=== PATIENT | male | born 1975 | race Caucasian/White ===

== ENCOUNTER 2019-12-16 07:33 | Emergency (ER) | payer OTHER, SELFPAY ==
--- NOTE | ~2019-12-16 | XR_ITS ---
XR shoulder LT min 2V DATE: 12/16/2019 08:08 INDICATION: Injury. Anterior superior and posterior pain TECHNIQUE: 5 views COMPARISON: None FINDINGS: There is no fracture, dislocation, periosteal reaction or bone destruction or abnormal soft tissue calcification. IMPRESSION: Negative Reviewed, dictated and finalized at location A. IMPRESSION: Negative
[2019-12-16 07:37] VITALS: BP 159/108; PULSE 78; RESP 14; TEMP 36.3; O2SAT 100
--- NOTE | 2019-12-16 07:49 | ED.UPPEXIN ---
HPI - Extremity Injury (Upper) General Chief Complaint: Extremity Injury, Upper Stated Complaint: Left shoulder injury Time Seen by Provider: 12/16/19 07:44 Source: patient Mode of arrival: ambulatory Limitations: no limitations History of Present Illness HPI narrative: 44 yo male left hand dominant who presents with c/o left shoulder pain. 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 He states he was pulling debris off a roof when he noticed pulling pain to left posterior shoulder. He states his pain radiates down to his elbow and he has some mild tingling to his finger. His pain is worse with movement. He denies neck injury. He has not taken anything for pain. Related Data Home Medications Medication Instructions Recorded Confirmed No Home Medications 12/16/19 12/16/19 Allergies Allergy/AdvReac Type Severity Reaction Status Date / Time No Known Allergies Allergy Verified 12/16/19 07:40 Review of Systems Constitutional: Constitutional: Denies chills and Denies fever(s) Neurologic: Denies focal weakness and Reports weakness PMFSH Past Medical History Medical History (Updated 12/16/19 @ 09:30 by Chely Harding MD) No active medical problems Surgical History Surgical History (Updated 12/16/19 @ 07:53 by Chely Harding MD) S/P left knee arthroscopy Social History Social History (Updated 12/16/19 @ 07:53 by Chely Harding MD) Occupation/Education: occupation 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 Gender identity (if verbalized by the patient): Male Exam Const: General: no acute distress and alert Orientation/consciousness: patient oriented x3 Resp: Effort & Inspection: normal respiratory effort Cardio: Other: bilateral strong radial pulse Skin: General skin exam: normal color Rashes: no rashes Neuro: General: patient oriented x3 and moves all extremities Extrem: Left upper extremity: full ROM and shoulder/upper arm tenderness of the A-C joint (left) Course Vital Signs Vital signs: Vital Signs Temperature 97.4 F L 12/16/19 07:37 Pulse Rate 78 12/16/19 07:37 Respiratory Rate 14 12/16/19 07:37 Blood Pressure 159/108 H 12/16/19 07:37 Pulse Oximetry 100 12/16/19 07:37 Temperature 97.4 F L 12/16/19 07:37 Pulse Rate 71 12/16/19 10:00 Respiratory Rate 16 12/16/19 10:00 Blood Pressure 146/103 H 12/16/19 10:00 Pulse Oximetry 97 12/16/19 10:00 MDM - Extremity Injury (Upper) Imaging Data Radiologist's impression: ITS Impressions Shoulder X-Ray 12/16/19 09:02 IMPRESSION: Negative Discharge Plan Discharge Clinical Impression: Left shoulder strain Qualifiers: Encounter type: initial encounter Qualified Code(s): S46.912A - Strain of unspecified muscle, fascia and tendon at shoulder and upper arm level, left arm, initial encounter Patient Disposition: Home, Self-Care Condition: Stable Instructions: Antibiotic Form, Shoulder Sprain (ED), Exercises for Shoulder Abduction and Adduction (ED), Rotator Cuff Injury Exercises (DC) Prescriptions: No Action No Home Medications RF: 0 Follow-up/Referrals: Enrique,Emerson Elizabeth MD [Primary Care Provider] - Discharge Date/Time: 12/16/19 10:00
[2019-12-16 10:00] VITALS: BP 146/103; PULSE 71; RESP 16; O2SAT 97
== END 2019-12-16 10:00 | disposition home or self-care (01) ==
PROVIDERS: Emergency Provider General Practice; PCP Internal Medicine
DX: S46.912A Strain of unspecified muscle, fascia and tendon at shoulder and upper arm level, left arm, initial encounter (principal); X50.9XXA Other and unspecified overexertion or strenuous movements or postures, initial encounter
CPT/HCPCS: 73030; 99283

== ENCOUNTER 2021-09-01 15:56 | Emergency (ER) | payer OTHER, SELFPAY ==
[2021-09-01 16:05] VITALS: BP 147/100; PULSE 81; RESP 16; TEMP 36.1; O2SAT 100
--- NOTE | 2021-09-01 16:20 | ED.URI ---
HPI - URI/Sore Throat General Chief Complaint: Upper Respiratory Infection Stated Complaint: sor throat Time Seen by Provider: 09/01/21 16:21 Source: patient and RN notes reviewed Mode of arrival: ambulatory Limitations: no limitations History of Present Illness HPI Narrative: 46-year-old male presents with concern for sore throat, swollen uvula, painful swallowing. Reports some rhinorrhea, denies nasal congestion or cough. Denies fever, body aches, chills, sweats. Reports he was fully vaccinated for Covid. Reports kids with similar symptoms. MD elicited complaint: sore throat Related Data Home Medications Medication Instructions Recorded Confirmed citalopram mg 09/01/21 lisinopril 09/01/21 omeprazole 09/01/21 09/01/21 Allergies Allergy/AdvReac Type Severity Reaction Status Date / Time No Known Allergies Allergy Verified 09/01/21 16:25 Review of Systems Review of Systems: CONSTITUTIONAL: Denies malaise, chills, sweats, or fever. EYES: Denies visual changes, redness, or discharge. ENT: Reports rhinorrhea, sore throat, painful swallowing congestion, sinus pain, otalgia CARDIOVASCULAR: Denies chest pain, palpitations, or edema. RESPIRATORY: Denies cough. Denies dyspnea. GASTROINTESTINAL: Denies abdominal pain, nausea, vomiting, diarrhea SKIN: Denies rash or itching. MUSCULOSKELETAL: Denies myalgia. NEUROLOGIC: Denies headache. 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 There is no relevant family history pertinent to the presenting complaint Exam Narrative: GENERAL: Well-appearing, well-nourished, and in no acute distress. HEAD: Normocephalic EYES: PERRLA, conjunctivae clear ENT: Nares clear. Mucous membranes moist. TM pearly peralta with sharp light reflex bilaterally; no tragal tenderness. Oropharynx erythematous without lesions. Tonsils not enlarged and without exudate, no drooling, no hoarseness, no trismus, uvula midline, erythematous without swelling. NECK: Supple. No lymphadenopathy CHEST: Clear to auscultation, breath sounds equal. No wheezing, rhonchi, rales, or stridor. No respiratory distress, speaks in full sentences. HEART: Regular rate and rhythm. No murmur heard. SKIN: Warm, dry, no rash. NEURO: Alert and oriented x3. PSYCH: Normal mood and affect Course Course Emergency Course: Patient is aware of diagnosis, understands and agrees to treatment plan. Anticipatory guidance given. Patient agrees to follow-up as directed and is aware of reasons to seek care at the emergency department. Portions of this record may have been created with voice recognition software Vital Signs Vital signs: Vital Signs Temperature 97.0 F L 09/01/21 16:05 Pulse Rate 81 09/01/21 16:05 Respiratory Rate 16 09/01/21 16:05 Blood Pressure 147/100 H 09/01/21 16:05 Pulse Oximetry 100 09/01/21 16:05 Temperature 97.0 F L 09/01/21 16:05 Pulse Rate 81 09/01/21 16:05 Respiratory Rate 16 09/01/21 16:05 Blood Pressure 147/100 H 09/01/21 16:05 Pulse Oximetry 100 09/01/21 16:05 Reviewed. Patient has history of hypertension MDM - URI/Sore Throat MDM Narrative Medical decision making narrative: GENERAL: Well-appearing, well-nourished, and in no acute distress. HEAD: Normocephalic EYES: PERRLA, conjunctivae clear ENT: Nares clear, turbinates edematous and erythematous, clear discharge. Mucous membranes moist. TM pearly peralta with dull
== END 2021-09-01 16:38 | disposition home or self-care (01) ==
PROVIDERS: Emergency Provider Nurse Practitioner; PCP Internal Medicine
DX: J02.9 Acute pharyngitis, unspecified (principal); I10 Essential (primary) hypertension; K21.9 Gastro-esophageal reflux disease without esophagitis
CPT/HCPCS: 87081; 87880; 99213; G0463